=== PATIENT | male | born 1970 | race Hispanic/Latino ===

== ENCOUNTER 2021-05-18 13:38 | Inpatient (IN) | payer SELFPAY ==
[2021-05-18] MEDS ORDERED: Ondansetron ODT 4 MG TAB PO PRN (14:28)
[2021-05-18 15:09] LABS: #Monocytes 0.4 10x3/uL (0.0-1.1); #Neutrophils 3.3 10x3/uL (1.5-8.4); %Basophils 0.5 % (0.0-2.0); %Eosinophils 0.5 % (0.0-6.0); %Lymphocytes 36.7 % (18.0-47.0); %Monocytes 6.7 % (0.0-10.0); %Neutrophils 55.3 % (40.0-75.0); Hemoglobin 14.4 g/dL (13.5-17.5); Mean Corpuscular HGB CONC 34.9 g/dL (32.0-36.0); Mean Corpuscular Hemoglobin 31.7 pg (27.0-33.0); Mean Platelet Volume 10.5 fl (7.4-10.4); Platelet Count 198 10x3/uL (150-450); Red Blood Cell (RBC) Count 4.54 10x6/uL (4.32-5.72)
[2021-05-18 15:16] LABS: INR-International Normal Ratio 1.4; PTT 37.1 sec (22.0-33.0); Prothrombin Time 14.9 sec (9.5-12.1)
[2021-05-18 15:20] LABS: Anion Gap 12 mmol/L (10-20); BUN (Urea Nitrogen) 11 mg/dL (8.9-20.6); Calc. Creatinine Clearance 0 mL/min (70-130); Calcium 8.6 mg/dL (7.8-10.44); Carbon Dioxide 23 mmol/L (22-29); Chloride 108 mmol/L (98-107); Glucose 90 mg/dL (70-105); Potassium 4.1 mmol/L (3.5-5.1); Sodium 139 mmol/L (136-145)
[2021-05-18 15:23] LABS: Troponin I 0.023 ng/mL (< 0.028)
[2021-05-18] MEDS ORDERED: Warfarin Sodium 1 MG TAB PO SCH ×2 (17:00→21:00)
[2021-05-18 18:01] LABS: Troponin I 0.045 ng/mL (< 0.028)
[2021-05-18 18:35] VITALS: BMI 30.2
[2021-05-18] MEDS: Enoxaparin Sodium 100 MG/ML SYRINGE SC SCH (21:27)
[2021-05-18] MEDS: Atorvastatin Calcium 40 MG TAB PO SCH (21:28)
[2021-05-19 05:40] LABS: #Eosinphils 0.1 10x3/uL (0.0-0.5); #Monocytes 0.5 10x3/uL (0.0-1.1); #Neutrophils 3.2 10x3/uL (1.5-8.4); %Basophils 0.7 % (0.0-2.0); %Eosinophils 1.2 % (0.0-6.0); %Lymphocytes 36.5 % (18.0-47.0); %Monocytes 7.5 % (0.0-10.0); %Neutrophils 53.8 % (40.0-75.0); Hemoglobin 14.4 g/dL (13.5-17.5); Mean Corpuscular HGB CONC 34.4 g/dL (32.0-36.0); Mean Corpuscular Hemoglobin 31.4 pg (27.0-33.0); Mean Corpuscular Volume 91.3 fl (81.2-95.1); Platelet Count 187 10x3/uL (150-450); RBC Distribution Width 11.9 % (11.5-14.5); Red Blood Cell (RBC) Count 4.58 10x6/uL (4.32-5.72)
[2021-05-19 05:55] LABS: INR-International Normal Ratio 1.6; Prothrombin Time 16.8 sec (9.5-12.1)
[2021-05-19 06:07] LABS: Thyroid Stimulating Hormone 6.5485 uIU/mL (0.35-4.94)
[2021-05-19 06:12] LABS: Anion Gap 13 mmol/L (10-20); BUN (Urea Nitrogen) 15 mg/dL (8.9-20.6); Calc. Creatinine Clearance 106 mL/min (70-130); Calcium 8.7 mg/dL (7.8-10.44); Carbon Dioxide 25 mmol/L (22-29); Cardiac Risk 4.7 (Less than 4.5); Chloride 106 mmol/L (98-107); Cholesterol 197 mg/dl (< 200 Desired); Glucose 96 mg/dL (70-105); HDL Cholesterol 42 mg/dL (>60 Neg Risk); LDL Cholesterol, Calculated 128 mg/dL; Potassium 4.3 mmol/L (3.5-5.1); Sodium 140 mmol/L (136-145); Triglycerides 136 mg/dL (Less than 150)
[2021-05-19] MEDS: Enoxaparin Sodium 100 MG/ML SYRINGE SC SCH ×2 (08:34→20:51)
[2021-05-19] MEDS: Aspirin 81 mg Enteric Coated Tablet PO SCH (08:34)
[2021-05-19] MEDS: Amiodarone 200 MG TAB PO SCH (08:34)
[2021-05-19 12:24] LABS: Hemoglobin A1c 5.5 % (4.0-6.0)
[2021-05-19] MEDS ORDERED: Warfarin Sodium 1 MG TAB PO SCH (17:00)
[2021-05-19] MEDS: Atorvastatin Calcium 40 MG TAB PO SCH (20:51)
[2021-05-19] MEDS: Acetaminophen 325 MG TAB PO PRN (21:13)
[2021-05-20 04:29] LABS: INR-International Normal Ratio 1.5; PTT 40.7 sec (22.0-33.0); Prothrombin Time 16.1 sec (9.5-12.1)
[2021-05-20] MEDS ORDERED: Cyanocobalamin (Vitamin B-12) 1,000 MCG TAB PO SCH (09:00)
[2021-05-20] MEDS: Aspirin 81 mg Enteric Coated Tablet PO SCH (10:45)
[2021-05-20] MEDS: Amiodarone 200 MG TAB PO SCH (10:45)
[2021-05-20] MEDS: Enoxaparin Sodium 100 MG/ML SYRINGE SC SCH ×2 (10:45→21:56)
[2021-05-20] MEDS: Lisinopril 10 MG TAB PO SCH (10:46)
[2021-05-20] MEDS: Acetaminophen 325 MG TAB PO PRN (10:46)
[2021-05-20] MEDS: Folic Acid 1 MG TAB PO SCH (10:46)
[2021-05-20] MEDS ORDERED: Warfarin Sodium 1 MG TAB PO SCH (17:00)
[2021-05-20] MEDS: Atorvastatin Calcium 40 MG TAB PO SCH (21:58)
[2021-05-21 06:00] LABS: INR-International Normal Ratio 1.5; PTT 41.2 sec (22.0-33.0); Prothrombin Time 15.8 sec (9.5-12.1)
[2021-05-21] MEDS ORDERED: Cyanocobalamin 1000 MCG/ML VIAL IM SCH (09:00)
[2021-05-21] MEDS: Amiodarone 200 MG TAB PO SCH (10:54)
[2021-05-21] MEDS: Folic Acid 1 MG TAB PO SCH (10:54)
[2021-05-21] MEDS: Enoxaparin Sodium 100 MG/ML SYRINGE SC SCH ×2 (10:54→20:32)
[2021-05-21] MEDS: Lisinopril 10 MG TAB PO SCH (10:54)
[2021-05-21] MEDS: Cyanocobalamin (Vitamin B-12) 1,000 MCG TAB PO SCH (10:54)
[2021-05-21] MEDS: Aspirin 81 mg Enteric Coated Tablet PO SCH (10:54)
[2021-05-21] MEDS ORDERED: Warfarin Sodium 3 MG TAB PO SCH (17:00)
[2021-05-21] MEDS: Atorvastatin Calcium 40 MG TAB PO SCH (20:31)
[2021-05-22 05:47] LABS: INR-International Normal Ratio 1.6
[2021-05-22] MEDS: Aspirin 81 mg Enteric Coated Tablet PO SCH (09:08)
[2021-05-22] MEDS: Enoxaparin Sodium 100 MG/ML SYRINGE SC SCH (09:12)
[2021-05-22] MEDS: Folic Acid 1 MG TAB PO SCH (09:13)
[2021-05-22] MEDS: Cyanocobalamin (Vitamin B-12) 1,000 MCG TAB PO SCH (09:13)
[2021-05-22] MEDS: Lisinopril 10 MG TAB PO SCH (09:13)
[2021-05-22] MEDS: Amiodarone 200 MG TAB PO SCH (09:13)
[2021-05-22 16:37] VITALS: BP 127/78; TEMP 97.7
[2021-05-22] MEDS ORDERED: Warfarin Sodium 3 MG TAB PO SCH (17:00)
[2021-05-23] MEDS ORDERED: Warfarin Sodium 1 MG TAB PO SCH (17:00)
== END 2021-05-22 20:10 | disposition home or self-care (01) | DRG 66 ==
LOC: CSHTELE 13:38 → OBSVTOIN 05-19 12:30
PROVIDERS: ADMIT Internal Medicine; ATTEND Internal Medicine
DX: I63.431 Cerebral infarction due to embolism of right posterior cerebral artery (principal); R79.1 Abnormal coagulation profile; I10 Essential (primary) hypertension; I49.9 Cardiac arrhythmia, unspecified; R29.810 Facial weakness; E78.5 Hyperlipidemia, unspecified; R79.89 Other specified abnormal findings of blood chemistry; E53.8 Deficiency of other specified B group vitamins; Z95.2 Presence of prosthetic heart valve; Z79.01 Long term (current) use of anticoagulants; Z79.899 Other long term (current) drug therapy
CPT/HCPCS: 36415; 70544; 70549; 70551; 80048; 80061; 82607; 82746; 83036; 83735; 84439; 84443; 84481; 85025; 85610; 85730; 93306; 93880; J1650